=== PATIENT | female | born 1985 | race Caucasian/White ===

== ENCOUNTER 2021-06-09 18:48 | Emergency (ER) | payer OTHER ==
[2021-06-09 19:39] VITALS: RESP 18; TEMP 98.3
[2021-06-09] MEDS ORDERED: SODIUM CHLORIDE 0.9% 500 ML 500 ML IV ONE (20:21)
--- NOTE | 2021-06-09 20:23 | ED ---
General Adult HPI - General Chief complaint: Recheck/Abnormal Lab/Rx Stated complaint: Covid+/Antibodies Time Seen by Provider: 06/09/21 20:12 Source: patient, RN notes reviewed, old records reviewed Mode of arrival: ambulatory Limitations: no limitations - History of Present Illness Initial comments: 35-year-old female who tested positive for coronavirus approximate 5 days ago with symptoms beginning 6 days ago was sent in for monoclonal antibodies. Patient has remote history of thyroid cancer and leukemia status post chemotherapy. She's currently cancer free. She was prescribed steroids, is azithromycin, zinc, vitamin C and vitamin D by her oncologist. She reports that she has tried remain active and is had no major breathing issues. She has had some mild upset stomach which she believes is secondary to steroids. - Related Data Home Medications Medication Instructions Recorded Confirmed Acetaminophen-Codeine 300-30mg 1 tab PO Q4H PRN 06/09/21 06/09/21 [Tylenol w/codeine #3] Amoxicillin 500 mg PO TID 06/09/21 06/09/21 Ascorbic Acid [Vitamin C] 500 mg PO DAILY 06/09/21 06/09/21 Cholecalciferol [Vitamin D3 (25 25 mcg PO DAILY 06/09/21 06/09/21 Mcg = 1000 Iu)] Ibuprofen 600 mg PO Q4H PRN 06/09/21 06/09/21 Levothyroxine Sodium [Synthroid] 50 mcg PO AC-BRKFST 06/09/21 06/09/21 Zinc 50 mg PO DAILY 06/09/21 06/09/21 dexAMETHasone 4 mg PO BID 06/09/21 06/09/21 Allergies Allergy/AdvReac Type Severity Reaction Status Date / Time hydromorphone [From Dilaudid] AdvReac Nausea & Verified 06/09/21 20:52 Vomiting prochlorperazine AdvReac Rapid Verified 06/09/21 20:52 [From Compazine] Heart Rate promethazine [From Phenergan] AdvReac Rapid Verified 06/09/21 20:52 Heart Rate Review of Systems ROS Statement: Those systems with pertinent positive or pertinent negative responses have been documented in the HPI. ROS Other: All systems not noted in ROS Statement are negative. Past Medical History Past Medical History: Thyroid Disorder Additional Past Medical History / Comment(s): leukemia, thyroid cancer History of Any Multi-Drug Resistant Organisms: None Reported Past Surgical History: Appendectomy, Section, Cholecystectomy, Hernia Repair, Tonsillectomy Additional Past Surgical History / Comment(s): thyroidectomy, hashimotos Past Psychological History: No Psychological Hx Reported Smoking Status: Never smoker Past Alcohol Use History: Occasional Past Drug Use History: None Reported General Exam Limitations: no limitations General appearance: alert, in no apparent distress Head exam: Present: atraumatic, normocephalic Eye exam: Present: normal appearance, PERRL ENT exam: Present: normal exam Neck exam: Present: normal inspection. Absent: tenderness, meningismus Respiratory exam: Present: normal lung sounds bilaterally. Absent: respiratory distress, wheezes Cardiovascular Exam: Present: regular rate, normal rhythm GI/Abdominal exam: Present: soft. Absent: distended, tenderness Extremities exam: Present: normal inspection, normal capillary refill. Absent: pedal edema, calf tenderness Neurological exam: Present: alert, oriented X3, CN II-XII intact. Absent: motor sensory deficit Psychiatric exam: Present: normal affect, normal mood Skin exam: Present: warm, dry, intact. Absent: cyanosis, diaphoretic Course Vital Signs 06/09/21 06/09/21 19:35 21:50 Temperature 98.3 F Pulse Rate 122 H 75 Respiratory 18 18 Rate Blood Pressure 136/93 127/84 O2 Sat by Pulse 100 99 Oximetry Medical Decision Making - Medical Decision Making Patient will be transfused medical antibodies in the emergency department. Will continue to monitor her breathing at home. She will continue medications as prescribed by her oncologist. Return parameters discussed. Disposition Clinical Impression: COVID-19 Disposition: HOME SELF-CARE Condition: Fair Instructions (If sedation given, give patient instructions): Coronavirus Disease 2019 (COVID-19) Is patient prescribed a controlled substance at d/c from ED?: No Referrals: Alphonso Eason MD [Primary Care Provider] - 1-2 days Time of Disposition: 22:30
[2021-06-09] MEDS ORDERED: SODIUM CHLORIDE 0.9% 50 ML IVPB ONE (20:30)
[2021-06-09] MEDS ORDERED: BAMLANIVIMAB (EUA) 700 MG, ETESEVIMAB (EUA) 1,400 MG in SODIUM CHLORIDE 0.9% 50 ML IVPB ONE (20:30)
[2021-06-09 21:52] VITALS: BP 127/84; PULSE 75
== END 2021-06-09 23:01 | disposition home or self-care (01) ==
LOC: EC 18:48
DX: U07.1 COVID-19 (principal); E07.9 Disorder of thyroid, unspecified; Z88.8 Allergy status to other drugs, medicaments and biological substances; Z88.5 Allergy status to narcotic agent; Z79.890 Hormone replacement therapy
CPT/HCPCS: 99283; 96365; 96361; J3490; 99285